=== PATIENT | female | born 1955 | race Caucasian/White ===

== ENCOUNTER 2017-10-15 06:02 | Inpatient (IN) | payer OTHER ==
[~2017-10-15] VITALS: Ht 160 cm; Wt 92.3 kg
[2017-10-15] VITALS (12 sets, daily range): BP systolic 119–151; BP diastolic 56–90; PULSE 50–90; RESP 16–44; Ht 160 cm; Wt 92.3 kg
[2017-10-15] MEDS ORDERED: CEFAZOLIN 1 GM INJ ONE (07:00)
[2017-10-15] MEDS ORDERED: SOD CHLORIDE 0.9% 1,000 ML IV SCH (07:00)
[2017-10-15] MEDS ORDERED: CEFAZOLIN 2 GM/50 ML (PMX) 50 ML IVPB SCH (07:00)
[2017-10-15] MEDS ORDERED: MIDAZOLAM 1 MG/ML 2 ML INJ ONE (07:38)
[2017-10-15] MEDS ORDERED: LIDOCAINE 2% (SDV) 5 ML INJ ONE (07:38)
[2017-10-15] MEDS ORDERED: ROCURONIUM 50 MG INJ ONE (07:38)
[2017-10-15] MEDS ORDERED: PROPOFOL 20 ML ONE (07:38)
[2017-10-15] MEDS ORDERED: GLYCOPYRROLATE 0.4 MG INJ ONE (07:38)
[2017-10-15] MEDS ORDERED: NEOSTIGMINE 3 MG/3 ML SYRINGE ONE (07:38)
[2017-10-15] MEDS ORDERED: FENTAnyl 50 MCG/ML VIAL ONE (07:38)
[2017-10-15] MEDS ORDERED: ONDANSETRON 4 MG INJ ONE (07:39)
[2017-10-15] MEDS ORDERED: DEXAMETHASONE 4 MG/ML 1 ML INJ ONE (07:39)
[2017-10-15] MEDS ORDERED: SUCCINYLCHOLINE CHLORIDE 100 MG/5 ML SYG IV ONE (07:42)
[2017-10-15] MEDS ORDERED: OXYCODONE/ACETAMINOPHEN (5/325) TAB PO PRN ×2 (08:00)
[2017-10-15] MEDS ORDERED: ONDANSETRON 4 MG INJ IV PRN ×2 (08:00→11:30)
[2017-10-15] MEDS ORDERED: FENTAnyl 50 MCG/ML VIAL IV PRN ×2 (08:00)
[2017-10-15] MEDS ORDERED: HYDROmorphONE (0.2 MG/ML) 10ML SYG IV PRN ×2 (08:00)
[2017-10-15] MEDS ORDERED: hydrALAzine 20 MG INJ IV PRN (08:00)
[2017-10-15] MEDS ORDERED: ATROPINE 1 MG/10 ML SYRINGE IV PRN (08:00)
[2017-10-15] MEDS ORDERED: LABETALOL HCL 20MG INJ IV PRN (08:00)
[2017-10-15] MEDS ORDERED: DIPHENHYDRAMINE 50 MG INJ IV PRN (08:00)
[2017-10-15] MEDS ORDERED: morphine (1 MG/ML) 10ML SYRINGE IV PRN ×3 (08:00)
[2017-10-15] MEDS ORDERED: MEPERIDINE 25 MG INJ IV PRN (08:00)
[2017-10-15] MEDS ORDERED: MIDAZOLAM 1 MG/ML 2 ML INJ IV PRN (08:00)
[2017-10-15] MEDS ORDERED: EPHEDrine SULFATE 50 MG/5 ML SYG IV PRN (08:00)
--- NOTE | 2017-10-15 08:41 | RADRPT ---
PROCEDURE: XR Chest. CLINICAL INDICATION: Preop TECHNIQUE: A single AP view of the chest was obtained. COMPARISON: None. FINDINGS: No focal airspace opacification, pleural effusion or pneumothorax is seen. The cardiomediastinal si lhouette is mildly enlarged. The osseous structures are unremarkable. IMPRESSION: 1. No radiographic evidence of acute cardiopulmonary disease. 2. Mild cardiomegaly. RPTAT: HH .Fidelia Bowser MD, MD Date Time Electronically viewed and signed by .Fidelia Bowser MD, on 10/15/2017 08:41 .G/
[2017-10-15 09:01] LABS: WHITE BLOOD COUNT 6.3 10^3/ul (4.8-10.8)
[2017-10-15 09:02] LABS: BASOPHILS % 0.3 % (0.0-2.0); EOSINOPHILS # 0.1 10^3/ul (0.0-0.5); EOSINOPHILS % 2.2 % (0.0-7.0); HEMATOCRIT 39.3 % (37.0-47.0); LYMPHOCYTES # 2.1 10^3/ul (0.8-2.9); LYMPHOCYTES % 33.3 % (15.0-51.0); MEAN CORPUSCULAR HGB CONC 33.1 g/dl (32.0-37.0); MEAN CORPUSCULAR VOLUME 90.6 fl (82.0-101.0); MEAN PLATELET VOLUME 10.5 fl (7.4-10.4); MONOCYTE # 0.4 10^3/ul (0.3-0.9); MONOCYTES % 5.9 % (0.0-11.0); NEUTROPHIL # 3.6 10^3/ul (1.6-7.5); PLATELET COUNT 209 10^3/UL (140-415); RED BLOOD COUNT 4.34 10^6/ul (4.20-5.40); RED CELL DISTRIBUTION WIDTH 12.9 % (11.5-14.5)
[2017-10-15 09:24] LABS: INR 0.9; PROTIME 12.2 Sec (11.9-14.9)
[2017-10-15 09:25] LABS: PARTIAL THROMBOPLASTIN TIME 30.8 Sec (25.0-35.0)
[2017-10-15] MEDS ORDERED: METHYLENE BLUE 1% 10 ML INJ ONE (09:35)
[2017-10-15] MEDS ORDERED: ISOSULFAN BLUE 1% 5 ML INJ SC ONE ×2 (09:36→10:27)
--- NOTE | 2017-10-15 11:12 | SIPON ---
Date/Time of Note Date/Time of Note DATE: 10/15/17 TIME: 11:11 Operative Report Preoperative Diagnosis Invasive cancer left breast Postoperative Diagnosis Same Operation/Procedure Performed Needle directed left partial mastectomy with axillary dissection utilizing sentinel lymph node technique Surgeon see signature line refinery operator assistant Dr Allan Anesthesia: general Estimated blood loss: 10 - 50 ml's Transfusion Required none Specimen Left breast specimen and axillary contents Grafts/Implants none Complications none JULIA JO MD Oct 15, 2017 11:12
[2017-10-15] MEDS ORDERED: ACETAMINOPHEN 1000MG/100ML IV 100 ML IVPB PRN (11:30)
[2017-10-15] MEDS ORDERED: morphine 2 MG INJ IV PRN (11:30)
[2017-10-15] MEDS: HYDROmorphONE (0.2 MG/ML) 10ML SYG IV PRN ×2 (11:43→11:57)
--- NOTE | 2017-10-15 12:11 | OPR ---
DATE OF OPERATION: 10/15/2017 SURGICAL ATTENDING: Nabeel Patino MD. PREOPERATIVE DIAGNOSIS: Invasive cancer, left breast. POSTOPERATIVE DIAGNOSIS: Invasive cancer, left breast. OPERATION PERFORMED: Needle-directed left partial mastectomy with axillary dissection utilizing sen tinel lymph node technique. ANESTHESIA: General. ANESTHESIOLOGIST: Jayjay Chamberlain MD. ACCOUNT SUPPORT ASSOCIATE: Ga Mane MD. INDICATIONS FOR PROCEDURE: The patient is a 62-year-old female who underwent screening mammography. Was found to have a suspicious lesion in her left breast. Subsequent biopsy confirmed invasive ca ncer. She was counseled as to the benefits of breast conservation surgery with needle-directed left partial mastectomy and axillary dissection utilizing sentinel lymph node technique. She consented and was scheduled for surgery. DESCRIPTION OF PROCEDURE: The patient was brought to the operating theater, placed under general an esthesia. The left breast and axillary region were prepped and draped in usual sterile fashion. Ap proximately 4 mL of 1% Lymphazurin blue dye were then injected peritumorally. The breast was gently massaged for approximately 12 minutes. At this point, 4 cm incision was made in the left axillary hairline. Subcutaneous tissue was dissected with cautery down through the clavipectoral fascia. A dye-stained lymphatic was identified and traced to a sentinel node which appeared to be quite firm. Due to this, Dr. Patino made decision to proceed with resection of the sentinel node and additional level 1 and level 2 lymph nodes with blunt dissection along the chest wall. The long thoracic nerve was identified and kept out of harm's way. More superiorly, the axillary vein was identified and d issected from medial to lateral. The thoracodorsal neurovascular bundle was identified, dissected t hroughout its course and kept out of harm's way. The lymph nodes, including the sentinel nodes, wer e meticulously resected using the LigaSure device. They were removed. The sentinel node underwent intraoperative analysis performed by attending pathologist, . The sentinel node on cytolog y was negative. The remainder of the nodes were sent for permanent pathologic analysis. The wound was irrigated. Minimal bleeding was controlled with cautery. A #10-Thai Rigoberto-Day drain was then brought through the left mid axillary line, cut to size and laid within the axilla. It was sec ured in place with 2-0 nylon suture in standard fashion and the incision was then closed with 4-0 Vi cryl suture in subcuticular fashion. Attention was then directed to performing the partial mastectomy. The localization wire was at appr oximately the 11 o'clock location. A curvilinear incision was made approximately 3 to 4 cm from the nipple-areolar complex. Subcutaneous tissue was dissected with cautery and skin edges were elevate d with skin hooks. Wide circumferential dissection of the tissue associated with the wire then took place, taking great care to ensure adequate margin. Specimen was elevated, transected, oriented an d sent for radiographic confirmation of capture. Capture was confirmed. Specimen was then sent for permanent pathologic analysis. Dr. Patino inspected the wound cavity. There appeared to be some li spicious firm tissue at the lateral margin. This was resected separately and sent for permanent pat hologic analysis. The wound was irrigated. Minimal bleeding was controlled with cautery. At this point, due to very large defect, Dr. Patino made the decision to place a Rigoberto-Day drain in the w ound cavity. It was brought through the left mid axillary line in standard fashion. It was cut to size, laid within the wound and secured in place with 2-0 nylon suture in standard fashion. The ski n was then reapproximated with 4-0 Vicryl suture in subcuticular fashion. Dermabond was applied to both incisions. The patient tolerated the procedure well. Total blood loss was approximately 30 mL . There were no complications and the patient was transported in stable condition to the recovery r o where a circumferential compression dressing was applied. Dictated By: NABEEL PATINO MD TL/REJI Conf#: [id number] DID#: [id number] CC: GA MANE MD;*EndCC*
--- NOTE | 2017-10-15 12:27 | HP ---
DATE OF ADMISSION: 10/15/2017 HISTORY OF PRESENT ILLNESS: The patient is a 62-year-old female who denies having any chronic medic al conditions. The patient underwent surveillance mammography and ultrasonography and was found to have a suspicious lesion in the left breast. Patient subsequently underwent core biopsy which revea led moderately differentiated invasive cancer, the tumor was ER/AK positive and HER-2 negative. Gale lamb was evaluated by Dr. Patino in surgical consultation and patient was brought to the hospital and underwent a needle directed left partial mastectomy with axillary dissection utilizing sentinel lym ph node technique. Postoperatively, the patient experienced moderate pain and mild nausea and patie nt will be admitted for further evaluation and management. PAST MEDICAL HISTORY: The patient denies having any chronic medical conditions, stated that she is healthy. PAST SURGICAL HISTORY: Status post appendectomy many years ago. ALLERGIES: NO KNOWN ALLERGIES. HOME MEDICATIONS: No active scripts. SOCIAL HISTORY: The patient lives with family. The patient denies any tobacco use, denies any alco hol use, denies any illicit drug use. FAMILY HISTORY: Negative for ovarian or breast cancer; however, the patient's mother had a history of pancreatic cancer at age 77. REVIEW OF SYSTEMS: A 12-point review of systems is negative unless what mentioned in the HPI. PHYSICAL ASSESSMENT: GENERAL: Well-developed, well-nourished female in no acute distress. VITAL SIGNS: Temperature 98.6, pulse is 76, blood pressure is 123/63, respiratory rate 25, oxygen s aturation 96% on 2 liters nasal cannula. HEENT: Head is atraumatic, normocephalic. Pupils equal, round, reactive to light and accommodation . Oral mucosa is pink and moist. NECK: Supple, no cervical lymphadenopathy, no thyromegaly. LUNGS: Clear bilaterally. There is no rhonchi, wheezes, rales noted. The patient has a dry, clean and intact dressing over the chest with left axillary JPs x2. CARDIOVASCULAR: Normal S1, S2. No murmurs, gallops, clicks, rubs noted. ABDOMEN: Protuberant, soft, nondistended, nontender. Bowel sounds present. No guarding, no reboun d tenderness. EXTREMITIES: No edema, clubbing, cyanosis. SKIN: There is no rash, petechiae noted. NEUROLOGICAL: The patient is awake, alert and oriented x3. No focal deficits noted. MUSCULOSKELETAL: Motor strength 5/5 in all extremities. LABORATORY DATA: On admission, CBC: White blood cells 6.3, hemoglobin 13.0, hematocrit 39.3, plate lets 209. PT 12.2, INR is 0.9, APTT is 30. ASSESSMENT: Invasive cancer of the left breast, status post needle-directed left partial mastectomy with axillary dissection utilizing sentinel lymph node technique by Dr. Patino on 10/15/2017. Noah nue morphine p.r.n. for pain and Zofran p.r.n. for nausea. Continue IV fluids and postoperative ant ibiotics. Sequential compression devices for deep venous thrombosis prophylaxis. CBC and BMP tomor row. Further recommendations based on clinical course. Plan of care discussed with Dr. Byrne. Dictated By: GABBY VALERO DEVICE ENGINEER for IBIS BYRNE MD SR/NTS Conf#: [id number] DID#: [id number] CC: JULIA PATINO MD;*EndCC*
[2017-10-15] MEDS: D5W-0.45 NACL + KCL 20 MEQ 1,000 ML IV SCH ×3 (13:18→21:50)
[2017-10-15 14:47] LABS: CALCIUM 8.4 mg/dl (8.4-10.2); CREATININE 0.66 mg/dl (0.44-1.00)
[2017-10-15] MEDS ORDERED: HYDROCODONE/APAP (5/325) TAB NGT PRN (20:00)
[2017-10-15] MEDS: LIDOCAINE 2% VISC 15 ML CUP PO SCH (21:50)
[2017-10-16 02:27] VITALS: BP 115/55; RESP 17
[2017-10-16] MEDS: D5W-0.45 NACL + KCL 20 MEQ 1,000 ML IV SCH (05:58)
[2017-10-16 07:50] VITALS: BP 101/62; RESP 18
[2017-10-16 08:04] LABS: CALCIUM 8.2 mg/dl (8.4-10.2); CREATININE 0.62 mg/dl (0.44-1.00); POTASSIUM 4.9 mmol/L (3.5-5.1)
[2017-10-16] MEDS: LIDOCAINE 2% VISC 15 ML CUP PO SCH ×2 (08:58→12:14)
[2017-10-16 09:58] LABS: BASOPHILS % 0.2 % (0.0-2.0); EOSINOPHILS % 0.4 % (0.0-7.0); HEMATOCRIT 36.8 % (37.0-47.0); HEMOGLOBIN 12.1 g/dl (12.0-16.0); LYMPHOCYTES # 2.5 10^3/ul (0.8-2.9); LYMPHOCYTES % 22.2 % (15.0-51.0); MEAN CORPUSCULAR HEMOGLOBIN 30.5 pg (29.0-33.0); MEAN CORPUSCULAR HGB CONC 32.9 g/dl (32.0-37.0); MEAN CORPUSCULAR VOLUME 92.7 fl (82.0-101.0); MEAN PLATELET VOLUME 10.3 fl (7.4-10.4); MONOCYTE # 0.7 10^3/ul (0.3-0.9); MONOCYTES % 6.4 % (0.0-11.0); NEUTROPHIL # 7.9 10^3/ul (1.6-7.5); NEUTROPHILS % 70.4 % (39.0-77.0); PLATELET COUNT 204 10^3/UL (140-415); RED BLOOD COUNT 3.97 10^6/ul (4.20-5.40); WHITE BLOOD COUNT 11.3 10^3/ul (4.8-10.8)
--- NOTE | 2017-10-16 12:17 | PN ---
Date/Time of Note Date/Time of Note DATE: 10/16/17 TIME: 12:16 Assessment/Plan VTE Prophylaxis VTE Prophylaxis Intervention: other Lines/Catheters IV Catheter Type (from Nrsg): Peripheral IV Assessment/Plan Chief Complaint/Hosp Course Invasive cancer of the left breast, status post needle-directed left partial mastectomy with axillary dissection utilizing sentinel lymph node technique by Dr. Patino on 10/15/2017. Continue morphine p.r.n. for pain and Zofran p.r.n. for nausea. Continue IV fluids and postoperative antibiotics. Sequential compression devices for deep venous thrombosis prophylaxis. CBC and BMP tomorrow. Further recommendations based on clinical course. Problems: Subjective 24 Hr Interval Summary Free Text/Dictation Patient has some chest pain and shortness of breath Exam/Review of Systems Vital Signs Vitals Vital Signs Date Time Temp Pulse Resp B/P Pulse Ox O2 Delivery O2 Flow Rate FiO2 10/16/17 07:50 97.9 18 18 101/62 98 10/15/17 13:05 Room Air Intake and Output 10/15/17 10/15/17 10/16/17 14:59 22:59 06:59 Intake Total 1000 ml 625 ml 1700 ml Output Total 30 ml 400 ml 1415 ml Balance 970 ml 225 ml 285 ml Exam Constitutional: well developed Head: atraumatic, normocephalic Respiratory: clear to auscultation Cardiovascular: regular rate and rhythm Gastrointestinal: non-tender, soft Extremities: normal pulses Results Result Diagram: 10/16/17 0923 10/16/17 0627 Results 24 hrs Laboratory Tests Test 10/15/17 14:14 10/16/17 06:27 10/16/17 09:23 Sodium Level 140 140 Potassium Level 4.0 4.9 Chloride Level 105 110 Carbon Dioxide Level 28 23 Anion Gap 11 12 Blood Urea Nitrogen 12 8 Creatinine 0.66 0.62 Glucose Level 152 118 Calcium Level 8.4 8.2 L White Blood Count 11.3 #H Red Blood Count 3.97 L Hemoglobin 12.1 Hematocrit 36.8 L Mean Corpuscular Volume 92.7 Mean Corpuscular Hemoglobin 30.5 Mean Corpuscular Hemoglobin Concent 32.9 Red Cell Distribution Width 13.0 Platelet Count 204 Mean Platelet Volume 10.3 Neutrophils % 70.4 Lymphocytes % 22.2 Monocytes % 6.4 Eosinophils % 0.4 Basophils % 0.2 Nucleated Red Blood Cells % 0.0 Neutrophils # 7.9 H Lymphocytes # 2.5 Monocytes # 0.7 Eosinophils # 0.0 Basophils # 0.0 Nucleated Red Blood Cells # 0.0 Medications Medications Current Medications Ondansetron HCl 4 mg 4 mg Q6H PRN IV NAUSEA AND/OR VOMITING; Start 10/15/17 at 11:30 Potassium Chloride/Dextrose/ Sod Cl (D5-1/2ns + KCl 20 Meq) 1,000 ml @ 125 mls/ hr Q8H IV Last administered on 10/16/17 05:58; Admin Dose 125 MLS/HR; Start 10/15/17 at 11:15 Morphine Sulfate 2 mg 2 mg Q1H PRN IV PAIN Last administered on 10/15/17 18:09 ; Admin Dose 2 MG; Start 10/15/17 at 11:30 Acetaminophen (Ofirmev 1000mg/ 100ml Iv) 100 ml @ 400 mls/hr Q6H PRN IVPB PAIN ; Start 10/15/17 at 11:30 Acetaminophen/ Hydrocodone Bitart ([place] (5/325)) 1 tab Q4H PRN NGT PAIN Last administered on 10/16/17 11:31; Admin Dose 1 TAB; Start 10/15/17 at 20:00 Lidocaine (Xylocaine (Viscous)) 5 ml TID PO Last administered on 10/16/17 12: 14; Admin Dose 5 ML; Start 10/15/17 at 21:00; Stop 10/18/17 at 13:01 GIULIANA PAIGE Oct 16, 2017 12:17
[2017-10-16 14:00] VITALS: BP 120/68; RESP 18
[2017-10-16] MEDS ORDERED: CEPASTAT LOZENGE MT PRN (14:30)
--- NOTE | 2017-10-16 17:00 | PN ---
DATE: 10/16/2017 SUBJECTIVE: No complaint, status post left breast needle located partial mastectomy and axillary di ssection. The patient does not have any complaint. No nausea, no vomiting. OBJECTIVE: GENERAL: Alert, awake, oriented x3. VITAL SIGNS: Temperature 97.9, heart rate 80, respirations 18, blood pressure 101/62, saturation 98 %. LABORATORY DATA: WBC 11,300 with 70% neutrophils, which is normal differential. Hemoglobin is 12. Sodium, potassium, BUN, creatinine normal. DRAINS: Patient has 2 Rigoberto-Vinod. The drainage from JPs has been 105 for one of them and 310 f rom the other one, total 415 mL since operation, which is from yesterday noontime and now it is 2 p. m. The color is only serosanguineous. Dressing is intact, but is not too tight. EXTREMITIES: No calf tenderness. ASSESSMENT: A 62-year-old female status post left needle-located partial mastectomy and axillary di ssection. The patient has 2 Rigoberto-Day drains. Vital signs are stable. Rigoberto-Day drainage is serosanguineous; it is not bloody. Therefore the patient is going to be discharged today with a prescription for pain to be followed by Dr. Jo in the office. The instruction was given to the p atient how to take care of the Rigoberto-Vinod and how to measure the amount, how to record them. Th e patient to call Dr. Jo' office on Wednesday and make an appointment for followup. Dictated By: FANNY MANE MD PS/NTS Conf#: [id number] DID#: [id number] CC: JULIA JO MD;*EndCC*
--- NOTE | 2017-10-19 14:23 | RADRPT ---
Vent Rate: 61 bpm RR Interval: 0 msec MN Interval: 156 msec QRS Duration: 74 msec QT Interval: 410 msec QTC Interval: 412 msec P-R-T [place]: 56 - 25 - 35 degrees Normal sinus rhythm Low voltage QRS Borderline ECG Electronically Signed By: Shai Sarabia [id number]
== END 2017-10-16 17:15 | disposition home or self-care (01) | DRG 581 ==
LOC: SDS 06:02 → REC 11:14 → PP2 13:14
PROVIDERS: ADMIT Surgery Surgical Oncology; ATTEND Surgery Surgical Oncology
PROC: 07B60ZX Excision of Left Axillary Lymphatic, Open Approach, Diagnostic (ICD-10-PCS; 2017-10-15)
PROC: 0HBU0ZZ Excision of Left Breast, Open Approach (ICD-10-PCS; principal; 2017-10-15 09:00)
DX: C50.212 Malignant neoplasm of upper-inner quadrant of left female breast (principal)
CPT/HCPCS: 71010; 80048; 85025; 85610; 85730; 88307; 88309; 88331; 93005; J0690; J1100; J1170; J2175; J2250; J2270; J2405; J2710; J3010; J3480; Q9968

== ENCOUNTER 2017-11-15 09:59 | Day surgery (SDC) | END 2017-11-15 15:32 | disposition home or self-care (01) ==